=== PATIENT | female | born 1960 | race Caucasian/White ===

== ENCOUNTER 2016-06-11 03:42 | Emergency (ER) | payer OTHER ==
--- NOTE | 2016-06-11 07:42 | ER Document Report ---
ED General - General Chief Complaint: Palpitations Stated Complaint: ANXIETY TRAVEL OUTSIDE OF THE [place] IN LAST 30 DAYS: No - HPI Patient complains to provider of: anxiety palpitations Notes: Age coming in for evaluation of anxiety palpitations. Patient recently had a capsule placed in by local GI specialist after this procedure patient states that she started having weird feelings in her stomach burning sensation in her chest numbness and tingling in her hands and possible anxiety attacks. Patient was seen by PCP and prescribed Xanax. Patient states her symptoms improved taking Xanax however still have another episode night prior to arrival and came to ER for further evaluation denies fevers chills nausea vomiting diarrhea. Patient denies any palpitations numbness or tingling at this time. - Related Data Allergies/Adverse Reactions: No Known Allergies Allergy (Unverified 06/11/16 04:07) Past Medical History - Social History Smoking Status: Current Every Day Smoker Frequency of alcohol use: None Drug Abuse: None Family History: Reviewed & Not Pertinent Patient has suicidal ideation: No Patient has homicidal ideation: No Renal/ Medical History: Denies: Hx Peritoneal Dialysis - Immunizations Hx Diphtheria, Pertussis, Tetanus Vaccination: Yes Review of Systems - Review of Systems Constitutional: No symptoms reported EENT: No symptoms reported Cardiovascular: Palpitations Respiratory: No symptoms reported Gastrointestinal: No symptoms reported Genitourinary: No symptoms reported Female Genitourinary: No symptoms reported Musculoskeletal: No symptoms reported Skin: No symptoms reported Hematologic/Lymphatic: No symptoms reported Neurological/Psychological: Anxiety -: Yes All other systems reviewed and negative Physical Exam - Vital signs Vitals: Temp Pulse Resp BP Pulse Ox 97.7 F 95 18 130/77 H 95 06/11/16 03:48 06/11/16 03:48 06/11/16 03:48 06/11/16 03:48 06/11/16 03:48 Interpretation: Normal - General General appearance: Appears well, Alert - HEENT Head: Normocephalic, Atraumatic Eyes: Normal Pupils: PERRL - Respiratory Respiratory status: No respiratory distress Chest status: Nontender Breath sounds: Normal Chest palpation: Normal - Cardiovascular Rhythm: Regular Heart sounds: Normal auscultation Murmur: No - Abdominal Inspection: Normal Distension: No distension Bowel sounds: Normal Tenderness: Nontender Organomegaly: No organomegaly - Back Back: Normal, Nontender - Extremities General upper extremity: Normal inspection, Nontender, Normal color, Normal ROM , Normal temperature General lower extremity: Normal inspection, Nontender, Normal color, Normal ROM , Normal temperature, Normal weight bearing. No: Lou's sign - Neurological Neuro grossly intact: Yes Cognition: Normal Orientation: AAOx4 Hendrix Coma Scale Eye Opening: Spontaneous Rosmery Coma Scale Verbal: Oriented Rosmery Coma Scale Motor: Obeys Commands Rosmery Coma Scale Total: 15 Speech: Normal Motor strength normal: LUE, RUE, LLE, RLE Sensory: Normal - Psychological Associated symptoms: Normal affect, Normal mood - Skin Skin Temperature: Warm Skin Moisture: Dry Skin Color: Normal Course - Re-evaluation Re-evalutation: 06/11/16 14:07 EKG and evaluation revealed no critical etiology. Recommend patient follow-up with her GI specialist and PCP. Continue medications as prescribed. - Vital Signs Vital signs: Temp Pulse Resp BP Pulse Ox 97.7 F 75 16 123/89 H 98 06/11/16 03:48 06/11/16 07:50 06/11/16 07:50 06/11/16 07:50 06/11/16 07:50 Discharge - Discharge Clinical Impression: Anxiety, Palpitations Condition: Good Disposition: HOME, SELF-CARE Instructions: Palpitations (Irregular or Rapid Heartrate) ([facility]), Anxiety ([facility]) , Reflux Disease (GERD) ([facility]) Additional Instructions: Please follow-up with your primary care physician. Please continue your medications as prescribed. I believe her symptoms are due to uterine acid reflux or GERD causing irritation of the diaphragm. We will add Reglan to aid in your symptoms. Prescriptions: Metoclopramide HCl [Reglan] 5 mg PO Q6 #14 tablet Referrals: JACKELYN LOW MD [Primary Care Provider] - Follow up in 3-5 days
[2016-06-11 08:10] VITALS: BP 123/89
--- NOTE | 2016-06-11 08:16 | EKG REPORT ---
SEVERITY:- NORMAL ECG - SINUS RHYTHM : Confirmed by: Arlin Carson MD 11-Jun-2016 08:16:01
== END 2016-06-11 07:50 | disposition home or self-care (01) ==
LOC: ER 03:42
DX: F41.9 Anxiety disorder, unspecified (principal); R00.2 Palpitations; R09.89 Other specified symptoms and signs involving the circulatory and respiratory systems; R20.0 Anesthesia of skin; R20.2 Paresthesia of skin; R19.8 Other specified symptoms and signs involving the digestive system and abdomen; F17.200 Nicotine dependence, unspecified, uncomplicated; Z98.890 Other specified postprocedural states
CPT/HCPCS: 93005; 93010; 99285

== ENCOUNTER 2016-07-01 11:40 | Observation (INO) | payer OTHER ==
--- NOTE | 2016-07-01 12:11 | ER Document Report ---
ED Medical Screen (RME) - General TRAVEL OUTSIDE OF THE [place] IN LAST 30 DAYS: No <JUANIS HODGSON - Last Filed: 07/01/16 12:12> <BRYAN LUNA - Last Filed: 07/08/16 10:53> - General Stated Complaint: HEART PALPITATIONS, NAUSEA Notes: 56 yo female c/o hearl pounding, chest tightness, anxiety, nausea, pounding in ears since this morning. Seen yesterday in ED for LUQ pain, DX with pancreatitis. pt does have hx/o anxiety. Took .25 xanax around 1000 today. minimal relief. denies abdominal pain today (JUANIS HODGSON) - Related Data Allergies/Adverse Reactions: No Known Allergies Allergy (Verified 07/01/16 12:08) Past Medical History Renal/ Medical History: Denies: Hx Peritoneal Dialysis - Immunizations Hx Diphtheria, Pertussis, Tetanus Vaccination: Yes <JUANIS HODGSON - Last Filed: 07/01/16 12:12> Course - Laboratory Result Diagrams: 07/02/16 03:31 07/02/16 03:31 <BRYAN LUNA - Last Filed: 07/08/16 10:53> - Vital Signs Vital signs: Temp Pulse Resp BP Pulse Ox 98.6 F 57 L 18 129/74 H 98 07/02/16 14:34 07/02/16 14:34 07/02/16 14:34 07/02/16 14:34 07/02/16 14:34 - Laboratory Laboratory results interpreted by me: 07/01/16 07/01/16 15:17 15:17 RDW 14.2 H BUN 6 L AST 12 L Doctor's Discharge <JUANIS HODGSON - Last Filed: 07/01/16 12:12> <BRYAN LUNA - Last Filed: 07/08/16 10:53> - Discharge Clinical Impression: Chest pain, Palpitations Condition: Fair Disposition: ADMITTED OBSERVATION
[2016-07-01] MEDS ORDERED: ASPIRIN 325 MG TABLET PO ONE (14:06)
[2016-07-01] MEDS ORDERED: NORMAL SALINE 1000 ML 1,000 ML IV ONE (14:06)
--- NOTE | 2016-07-01 14:12 | ER Document Report ---
ED General - General Chief Complaint: Palpitations Stated Complaint: HEART PALPITATIONS, NAUSEA Time seen by provider: 14:07 Mode of Arrival: Ambulatory Information source: Patient Notes: 56-year-old female who reports 2 month history of multiple episodes of midsternal chest tightness and rapid pounding heartbeat. Patient seen here yesterday for similar symptoms and was found to have cholelithiasis and a lipase of 455. 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 Jean Baptiste of gastroenterology in [place] by capsule endoscopy. She says her current symptoms are different that her esophagitis symptoms. She reports that she has been taking Xanax prescribed by her primary care physician [facility] for the symptoms since early May and reports that they usually will go away after about half an hour after she takes that at this morning she was woken up at 5 AM with the symptoms which are now associated with shortness of breath diaphoresis and nausea which are new for her he reports symptoms went away after about an hour with a Xanax this morning and then returned about 10 AM. She has not noted any association of the symptoms with eating or exertion. He reports approximately 15 pound weight loss over the past 2 months. She denies hematemesis, medication melena. She denies any history of travel or immobilization. She reports the chest discomfort she feels is nonradiating. She reports no pain numbness or weakness to extremities. She reports no prior stress testing or other cardiac workup. Physical Exam: General: Alert, appears well. HEENT: Normocephalic. Atraumatic. PERRLA. Extraocular movements intact. Oropharynx clear. Neck: Supple. Non-tender. Respiratory: No respiratory distress. Clear and equal breath sounds bilaterally. Not tender to palpation Cardiovascular: Regular rate and rhythm. Abdominal: Normal Inspection. Soft, non-tender. No distension. Normal Bowel Sounds. No guarding rebound rigidity Back: Non-tender. No deformity or step off. Extremities: Moves all four extremities. Upper extremities: Normal inspection. Non-tender. Normal color. Normal ROM. Normal temperature. Lower extremities: Normal inspection. Non-tender. No edema. Normal color. Normal ROM. Normal temperature. No edema no Homans sign bilaterally Neurological: Speech clear mentation normal can technician strength 5 out of 5 equal both upper extremities motor function 5 out of 5 equal both lower extremities Psychological: Normal affect. Normal Mood. Skin: Warm. Dry. Normal color. TRAVEL OUTSIDE OF THE [place] IN LAST 30 DAYS: No - Related Data Allergies/Adverse Reactions: No Known Allergies Allergy (Verified 07/01/16 12:08) Past Medical History - Social History Smoking Status: Current Every Day Smoker Chew tobacco use (# tins/day): Yes Frequency of alcohol use: None Drug Abuse: None Family History: CAD - Reports brother needs cardiac stent, Other - She reports no family history of blood clots Patient has suicidal ideation: No Patient has homicidal ideation: No - Past Medical History Cardiac Medical History: Reports: None Renal/ Medical History: Denies: Hx Peritoneal Dialysis - Immunizations Hx Diphtheria, Pertussis, Tetanus Vaccination: Yes Review of Systems - Review of Systems Constitutional: denies: Chills, Fever EENT: denies: Ear pain, Throat pain Cardiovascular: See HPI Respiratory: See HPI. denies: Cough Gastrointestinal: See HPI. denies: Diarrhea Genitourinary: denies: Burning, Dysuria Female Genitourinary: denies: Musculoskeletal: denies: Back pain, Leg swelling Skin: denies: Rash Hematologic/Lymphatic: denies: Swollen glands Neurological/Psychological: denies: Weakness, Numbness Physical Exam - Vital signs Vitals: Temp Pulse Resp BP Pulse Ox 98.3 F 89 19 137/72 H 98 07/01/16 12:04 07/01/16 12:04 07/01/16 12:04 07/01/16 12:04 07/01/16 12:04 Course - Re-evaluation Re-evalutation: 07/01/16 16:28 Patient's symptoms are suggestive of angina possibly related to a tachyarrhythmia. She reports no prior cardiac workup and this is her second visit in 24 hours for this complaint. I think it would be prudent to have her in observation with plans for repeat cardiac enzymes possible stress testing tomorrow. She may also develop further episodes of her reported tachycardia on the monitor and that may also give us a diagnosis. Lipase is mildly elevated yesterday but is normal [place]aston an oblique pancreatitis as causes for symptoms. She is noted yesterday to have gallstones on ultrasound but she has no right upper quadrant tenderness and labs are normal and I do not believe we should attribute her symptoms to cholelithiasis without cardiac etiologies being further investigated patient is agreeable have consult to Dr. obrien of the hospitalist service for admission - Vital Signs Vital signs: Temp Pulse Resp BP Pulse Ox 98.3 F 89 19 137/72 H 98 07/01/16 12:04 07/01/16 12:04 07/01/16 12:04 07/01/16 12:04 07/01/16 12:04 - Laboratory Result Diagrams: 07/01/16 15:17 07/01/16 15:17 Laboratory results interpreted by me: 07/01/16 07/01/16 15:17 15:17 RDW 14.2 H BUN 6 L AST 12 L - Diagnostic Test Radiology reviewed: Image reviewed, Reports reviewed - EKG Interpretation by Me Additional EKG results interpreted by me: 07/01/16 16:27 EKG reviewed by myself sinus bradycardia at 53 no acute changes no significant change compared to yesterday Discharge - Discharge Clinical Impression: Palpitations Chest pain Qualifiers: Chest pain type: unspecified Qualified Code(s): R07.9 - Chest pain, unspecified Condition: Fair Disposition: ADMITTED OBSERVATION Admitting Provider: Hospitalist Unit Admitted: Telemetry
[2016-07-01 15:41] LABS: ABSOLUTE BASOPHILS # (AUTO) 0.1 10^3/uL (0.0-0.2); ABSOLUTE LYMPHOCYTES (AUTO) 1.8 10^3/uL (0.5-4.7); ABSOLUTE MONOCYTES (AUTO) 0.5 10^3/uL (0.1-1.4); ABSOLUTE NEUT (AUTO) 6.1 10^3/uL (1.7-8.2); BASOPHILS % (AUTO) 0.8 % (0-2); EOSINOPHILS % (AUTO) 0.4 % (0-6); HEMATOCRIT 39.8 % (36.0-47.0); HGB HCT DIFFERENCE 1.3; LYMPHOCYTES % (AUTO) 20.9 % (13-45); MEAN CORPUSCULAR HEMOGLOBIN 30.6 pg (27.0-33.4); MEAN CORPUSCULAR HGB CONC 34.4 g/dL (32.0-36.0); MEAN CORPUSCULAR VOLUME 89 fl (80-97); MONOCYTES % (AUTO) 6.3 % (3-13); RED BLOOD COUNT 4.47 10^6/uL (3.72-5.28); RED CELL DISTRIBUTION WIDTH 14.2 % (11.5-14.0); SEGMENTED NEUTROPHILS % (AUTO) 71.6 % (42-78); WHITE BLOOD COUNT 8.6 10^3/uL (4.0-10.5)
[2016-07-01 16:01] LABS: ALANINE AMINOTRANSFERASE 28 U/L (9-52); ALBUMIN 4.2 g/dL (3.5-5.0); ALKALINE PHOSPHATASE 71 U/L (38-126); ANION GAP 9 (5-19); ASPARTATE AMINO TRANSFERASE 12 U/L (14-36); BILIRUBIN,TOTAL 0.6 mg/dL (0.2-1.3); BLOOD UREA NITROGEN 6 mg/dL (7-20); CALCIUM 9.7 mg/dL (8.4-10.2); CARBON DIOXIDE 26 mmol/L (22-30); CHLORIDE 107 mmol/L (98-107); CREATINE KINASE 50 U/L (30-135); CREATININE RESULT 0.59 mg/dL (0.52-1.25); GLUCOSE 84 mg/dL (75-110); LIPASE 62.4 U/L (23-300); MAGNESIUM 2.1 mg/dL (1.6-2.3); SODIUM 141.7 mmol/L (137-145); TOTAL PROTEIN 6.5 g/dL (6.3-8.2)
[2016-07-01 16:04] LABS: HEMOGLOBIN 13.7 g/dL (12.0-15.5)
[2016-07-01 16:12] LABS: CREATINE KINASE MB < 0.22 ng/mL (<4.55); TROPONIN I < 0.012 ng/mL
--- NOTE | 2016-07-01 17:28 | PDOC H&P ---
History of Present Illness Admission Date/PCP: JACKELYN LOW MD 07/01/2016 Patient complains of: Chest pain and abdominal pain History of Present Illness: MIGUE AGUILAR is a 56 year old female With a known history of reflux esophagitis and Gamble's esophagus presents to the ED second time with chief complaint of epigastric pain And chest pressure patient states the chest pressure started tonight was precordial does not radiate She still is experiencing palpitations at the same time She did not have any dizziness lightheadedness shortness of breath associated with it Patient was seen yesterday with similar complaints Ultrasound of the abdomen performed yesterday showed gallstones Lipase was mildly elevated Patient states that she had about 15 pounds weight loss in a month she has anorexia and vague epigastric discomfort Upon evaluation in the ED EKG was normal, cardiac enzymes normal She was subsequently admitted to telemetry unit for monitoring and observation CT abdomen and pelvis will be performed tonight Past Medical History Cardiac Medical History: Reports: None GI Medical History: Reports: Other - Reflux esophagitis Gamble's esophagus Endoscopy performed by Dr. Cope April 2016 Social History Information Source: Patient Lives with: Family Smoking Status: Current Every Day Smoker Frequency of Alcohol Use: None Drugs: None - Advance Directive Resuscitation Status: Full Code Surrogate healthcare decision maker:: [place] Family History Family History: CAD - Reports brother needs cardiac stent, Other - She reports no family history of blood clots Parental Family History Reviewed: Yes - Brother and father had coronary artery disease Children Family History Reviewed: Yes Sibling(s) Family History Reviewed.: Yes Medication/Allergy Home Medications: Metoclopramide HCl [Reglan] 5 mg PO Q6 #14 tablet 06/11/16 Ondansetron [Zofran Odt 4 mg Tablet] 1 - 2 tab PO Q4H PRN #15 tab.rapdis Allergies/Adverse Reactions: No Known Allergies Allergy (Verified 07/01/16 12:08) Review of Systems Constitutional: PRESENT: as per HPI, anorexia, weight loss Eyes: ABSENT: visual disturbances Ears: ABSENT: hearing changes Cardiovascular: PRESENT: as per HPI, chest pain, palpitations. ABSENT: dyspnea on exertion, edema, orthropnea Respiratory: ABSENT: cough, hemoptysis Gastrointestinal: PRESENT: abdominal pain, nausea. ABSENT: constipation, diarrhea, hematemesis, hematochezia, vomiting Genitourinary: ABSENT: dysuria, hematuria Musculoskeletal: ABSENT: joint swelling Integumentary: ABSENT: rash, wounds Neurological: ABSENT: abnormal gait, abnormal speech, confusion, dizziness, focal weakness, syncope Psychiatric: ABSENT: anxiety, depression, homidical ideation, suicidal ideation Endocrine: ABSENT: cold intolerance, heat intolerance, polydipsia, polyuria Hematologic/Lymphatic: ABSENT: easy bleeding, easy bruising Physical Exam Vital Signs: Temp Pulse Resp BP Pulse Ox 98.3 F 89 25 H 132/83 H 98 07/01/16 12:04 07/01/16 12:04 07/01/16 16:56 07/01/16 16:56 07/01/16 16:56 Intake & Output 06/30/16 07/01/16 07/02/16 00:59 00:59 00:59 Weight 65.1 kg General appearance: PRESENT: no acute distress, well-developed, well-nourished Head exam: PRESENT: atraumatic, normocephalic Eye exam: PRESENT: conjunctiva pink, EOMI, PERRLA. ABSENT: scleral icterus Ear exam: PRESENT: normal external ear exam Mouth exam: PRESENT: moist, tongue midline Neck exam: ABSENT: carotid bruit, JVD, lymphadenopathy, thyromegaly Respiratory exam: PRESENT: clear to auscultation ad. ABSENT: rales, rhonchi, wheezes Cardiovascular exam: PRESENT: RRR. ABSENT: diastolic murmur, rubs, systolic murmur Pulses: PRESENT: normal dorsalis pedis pul Vascular exam: PRESENT: normal capillary refill GI/Abdominal exam: PRESENT: normal bowel sounds, soft, tenderness - Epigastric area with mild guarding. ABSENT: distended, guarding, mass, organolmegaly, rebound Rectal exam: PRESENT: deferred Extremities exam: PRESENT: full ROM. ABSENT: calf tenderness, clubbing, pedal edema Neurological exam: PRESENT: alert, awake, oriented to person, oriented to place , oriented to time, oriented to situation, CN II-XII grossly intact. ABSENT: motor sensory deficit Psychiatric exam: PRESENT: appropriate affect, normal mood. ABSENT: homicidal ideation, suicidal ideation Skin exam: PRESENT: dry, intact, warm. ABSENT: cyanosis, rash Results Laboratory Results: 07/01/16 15:17 07/01/16 15:17 07/01/16 07/01/16 15:17 15:17 WBC 8.6 RBC 4.47 Hgb 13.7 D Hct 39.8 MCV 89 MCH 30.6 MCHC 34.4 RDW 14.2 H Plt Count 220 Seg Neutrophils % 71.6 Lymphocytes % 20.9 Monocytes % 6.3 Eosinophils % 0.4 Basophils % 0.8 Absolute Neutrophils 6.1 Absolute Lymphocytes 1.8 Absolute Monocytes 0.5 Absolute Eosinophils 0.0 Absolute Basophils 0.1 Sodium 141.7 Potassium 4.0 Chloride 107 Carbon Dioxide 26 Anion Gap 9 BUN 6 L Creatinine 0.59 Est GFR ( Amer) > 60 Est GFR (Non-Af Amer) > 60 Glucose 84 Calcium 9.7 Magnesium 2.1 Total Bilirubin 0.6 AST 12 L ALT 28 Alkaline Phosphatase 71 Total Protein 6.5 Albumin 4.2 Lipase 62.4 07/01/16 07/01/16 15:17 15:17 Creatine Kinase 50 CK-MB (CK-2) < 0.22 Troponin I < 0.012 EKG Comments: SINUS RHYTHM [id number] MIGUE AGUILAR 01-Jul-2016 14:17:04 : 1960 56 Years Female Impressions: Chest X-Ray 07/01/16 14:06 IMPRESSION: Lungs hyperlucent from obstructive disease. No focal infiltrates. Assessment & Plan - Diagnosis (1) Abdominal pain Qualifiers: Abdominal location: upper abdomen, unspecified Qualified Code(s): R10.10 - Upper abdominal pain, unspecified Is this a current diagnosis for this admission?: YesPlan: Patient has a slightly elevated lipase yesterday An ultrasound of the right upper quadrant showed gallstones no signs of cholecystitis We will obtained a CAT scan abdomen and pelvis Further tests may be done in a.m. to evaluate patient-MRCP and or hydascan (2) Weight loss Is this a current diagnosis for this admission?: YesPlan: Etiology is unclear likely related to the epigastric discomfort (3) Chest pain Qualifiers: Chest pain type: unspecified Qualified Code(s): R07.9 - Chest pain, unspecified Is this a current diagnosis for this admission?: YesPlan: Not likely to be coronary ischemia We will monitor the patient and obtain serial enzymes Patient is a smoker, and she has a positive family history (4) Palpitations Is this a current diagnosis for this admission?: Yes - Time Time Spent with patient: Admit to telemetry Time Spent: 50 to 70 Minutes - Inpatient Certification Based on my medical assessment, after consideration of the patient's comorbidities, presenting symptoms, or acuity I expect that the services needed warrant INPATIENT care.: No I certify that my determination is in accordance with my understanding of Medicare's requirements for reasonable and necessary INPATIENT services [42 CFR 412.3e].: No
[2016-07-01] MEDS ORDERED: ENOXAPARIN SODIUM INJ 40 MG/0.4 ML DISP.SYRIN SUBCUT ONE (18:30)
[2016-07-01] MEDS: PANTOPRAZOLE SODIUM 40 MG VIAL IV SCH (23:21)
[2016-07-01] MEDS: NORMAL SALINE 1000 ML 1,000 ML IV PRN (23:21)
[2016-07-02 03:54] LABS: HEMATOCRIT 38.4 % (36.0-47.0); HEMOGLOBIN 13.2 g/dL (12.0-15.5); HGB HCT DIFFERENCE 1.2; MEAN CORPUSCULAR HEMOGLOBIN 30.8 pg (27.0-33.4); MEAN CORPUSCULAR HGB CONC 34.4 g/dL (32.0-36.0); MEAN CORPUSCULAR VOLUME 89 fl (80-97); RED CELL DISTRIBUTION WIDTH 14.4 % (11.5-14.0); WHITE BLOOD COUNT 7.3 10^3/uL (4.0-10.5)
[2016-07-02 04:04] LABS: ALANINE AMINOTRANSFERASE 25 U/L (9-52); ALBUMIN 3.8 g/dL (3.5-5.0); ALKALINE PHOSPHATASE 64 U/L (38-126); ANION GAP 9 (5-19); ASPARTATE AMINO TRANSFERASE 13 U/L (14-36); BILIRUBIN,TOTAL 0.5 mg/dL (0.2-1.3); BLOOD UREA NITROGEN 4 mg/dL (7-20); CALCIUM 9.2 mg/dL (8.4-10.2); CARBON DIOXIDE 25 mmol/L (22-30); CHLORIDE 109 mmol/L (98-107); CHOLESTEROL 154.17 mg/dL (0-200); CREATININE RESULT 0.56 mg/dL (0.52-1.25); Direct HDL 33 mg/dL (>40); GLUCOSE 93 mg/dL (75-110); POTASSIUM 3.8 mmol/L (3.6-5.0); SODIUM 143.3 mmol/L (137-145); TRIGLYCERIDES 114 mg/dL (<150)
[2016-07-02 04:14] LABS: DIRECT LDL 88 mg/dL (<100)
[2016-07-02] MEDS ORDERED: ENOXAPARIN SODIUM INJ 40 MG/0.4 ML DISP.SYRIN SUBCUT SCH (08:00)
[2016-07-02] MEDS: NORMAL SALINE 1000 ML 1,000 ML IV PRN (09:23)
[2016-07-02] MEDS: PANTOPRAZOLE SODIUM 40 MG VIAL IV SCH (09:37)
--- NOTE | 2016-07-02 11:18 | EKG REPORT ---
SEVERITY:- NORMAL ECG - SINUS RHYTHM : Confirmed by: Maren Avelar 02-Jul-2016 11:17:20
--- NOTE | 2016-07-02 11:18 | EKG REPORT ---
SEVERITY:- BORDERLINE ECG - SINUS RHYTHM LOW VOLTAGE THROUGHOUT : Confirmed by: Maren Avelar 02-Jul-2016 11:17:15
[2016-07-02 14:36] VITALS: BP 129/74
--- NOTE | 2016-07-02 15:17 | PDOC DISCHARGE SUMMARY ---
General - Admit/Disc Date/PCP Admission Date/Primary Care Provider: 07/01/16 17:12 JACKELYN LOW MD Discharge Date: 07/02/16 - Discharge Diagnosis (1) Abdominal pain Is this a current diagnosis for this admission?: Yes (2) Weight loss Is this a current diagnosis for this admission?: Yes (3) Chest pain Is this a current diagnosis for this admission?: Yes (4) Palpitations Is this a current diagnosis for this admission?: Yes - Additional Information Resuscitation Status: Full Code Discharge Activity: Activity As Tolerated, Balance Activity w/Rest Home Medications: Alprazolam [Xanax 0.25 mg Tablet] 0.25 mg PO TIDP PRN 07/02/16 Cetirizine HCl [Zyrtec 10 mg Tablet] 10 mg PO DAILY PRN 07/02/16 Escitalopram Oxalate [Lexapro 10 mg Tablet] 10 mg PO DAILY 07/02/16 Escitalopram Oxalate [Lexapro 10 mg Tablet] 20 mg PO DAILY 07/02/16 Esomeprazole Mag Trihydrate [Nexium] 40 mg PO DAILY 07/02/16 Ranitidine HCl [Zantac 150 mg Tablet] 150 mg PO BID 07/02/16 Sucralfate [Carafate Susp 1 Gm/10 Ml Udcup] 1 gm PO ACHS #400 ml 07/02/16 History of Present Illness Patient complains of: Chest pain epigastric pain History of Present Illness: MIGUE AGUILAR is a 56 year old female With a known history of reflux esophagitis and Gamble's esophagus presents to the ED second time with chief complaint of epigastric pain And chest pressure patient states the chest pressure started tonight was precordial does not radiate She still is experiencing palpitations at the same time She did not have any dizziness lightheadedness shortness of breath associated with it Patient was seen yesterday with similar complaints Ultrasound of the abdomen performed yesterday showed gallstones Lipase was mildly elevated Patient states that she had about 15 pounds weight loss in a month she has anorexia and vague epigastric discomfort Upon evaluation in the ED EKG was normal, cardiac enzymes normal She was subsequently admitted to telemetry unit for monitoring and observation CT abdomen and pelvis will be performed tonight Hospital Course Hospital Course: Patient was admitted with chest epigastric discomfort and significant weight loss She was monitored overnight did not have any arrhythmia Cardiac enzymes were negative She had a normal lipid profile Ultrasound of the abdomen showed gallstones Hyda scan was negative CT abdomen and pelvis was unremarkable patient's epigastric discomfort is likely secondary to gastritis and/or peptic ulcer disease We prescribed Carafate to be added to Nexium Patient will follow up with her primary care physician and her compensation director If discomfort persists endoscopy may be indicated Physical Exam Vital Signs: Temp Pulse Resp BP Pulse Ox 98.6 F 57 L 18 129/74 H 98 07/02/16 14:34 07/02/16 14:34 07/02/16 14:34 07/02/16 14:34 07/02/16 14:34 Intake & Output 07/01/16 07/02/16 07/03/16 00:59 00:59 00:59 Intake Total 964 Output Total 800 Balance -800 964 Weight 65.5 kg 65.5 kg General appearance: PRESENT: no acute distress, well-developed, well-nourished Head exam: PRESENT: atraumatic, normocephalic Eye exam: PRESENT: conjunctiva pink, EOMI, PERRLA. ABSENT: scleral icterus Ear exam: PRESENT: normal external ear exam Mouth exam: PRESENT: moist, tongue midline Neck exam: ABSENT: carotid bruit, JVD, lymphadenopathy, thyromegaly Respiratory exam: PRESENT: clear to auscultation ad. ABSENT: rales, rhonchi, wheezes Cardiovascular exam: PRESENT: RRR. ABSENT: diastolic murmur, rubs, systolic murmur Pulses: PRESENT: normal dorsalis pedis pul Vascular exam: PRESENT: normal capillary refill GI/Abdominal exam: PRESENT: normal bowel sounds, soft. ABSENT: distended, guarding, mass, organolmegaly, rebound, tenderness Rectal exam: PRESENT: deferred Extremities exam: PRESENT: full ROM. ABSENT: calf tenderness, clubbing, pedal edema Neurological exam: PRESENT: alert, awake, oriented to person, oriented to place , oriented to time, oriented to situation, CN II-XII grossly intact. ABSENT: motor sensory deficit Psychiatric exam: PRESENT: appropriate affect, normal mood. ABSENT: homicidal ideation, suicidal ideation Skin exam: PRESENT: dry, intact, warm. ABSENT: cyanosis, rash Results Laboratory Results: 07/02/16 03:31 07/02/16 03:31 07/02/16 07/02/16 07/02/16 03:31 03:31 03:31 WBC 7.3 RBC 4.30 Hgb 13.2 Hct 38.4 MCV 89 MCH 30.8 MCHC 34.4 RDW 14.4 H Plt Count 184 Sodium 143.3 Potassium 3.8 Chloride 109 H Carbon Dioxide 25 Anion Gap 9 BUN 4 L Creatinine 0.56 Est GFR ( Amer) > 60 Est GFR (Non-Af Amer) > 60 Glucose 93 Calcium 9.2 Total Bilirubin 0.5 AST 13 L ALT 25 Alkaline Phosphatase 64 Total Protein 6.0 L Albumin 3.8 Triglycerides 114 Cholesterol 154.17 LDL Cholesterol Direct 88 VLDL Cholesterol 23.0 HDL Cholesterol 33 L TSH 1.11 07/01/16 07/02/16 21:09 03:31 Troponin I < 0.012 < 0.012 Impressions: Chest X-Ray 07/01/16 14:06 IMPRESSION: Lungs hyperlucent from obstructive disease. No focal infiltrates. Abdomen/Pelvis CT 07/01/16 17:16 IMPRESSION: NO SIGNIFICANT OR ACUTE FINDINGS IN THE ABDOMEN OR PELVIS. Hepatobiliary Scan Nuclear Medicine 07/02/16 08:47 IMPRESSION: NORMAL STUDY WITHOUT CYSTIC OR COMMON DUCT OBSTRUCTION. Plan Discharge Plan: Discharge home follow-up with PMD Time Spent: Less than 30 Minutes
== END 2016-07-02 16:25 | disposition home or self-care (01) ==
LOC: ER 11:40 → EH 17:12 → UNDOADMOB 17:33 → 3W 07-02 00:47
PROVIDERS: ADMIT Emergency Medicine; ATTEND Emergency Medicine
PROC: 3E0337Z Introduction of Electrolytic and Water Balance Substance into Peripheral Vein, Percutaneous Approach (ICD-10-PCS; principal; 2016-07-01)
PROC: 3E033GC Introduction of Other Therapeutic Substance into Peripheral Vein, Percutaneous Approach (ICD-10-PCS; 2016-07-01)
DX: R07.9 Chest pain, unspecified (principal); R10.10 Upper abdominal pain, unspecified; R63.4 Abnormal weight loss; R00.2 Palpitations; F17.200 Nicotine dependence, unspecified, uncomplicated
CPT/HCPCS: 93005 ×2; 99285; 96361; 96374; 36415 ×2; 82553; 82550; 83690; 83735; 84443; 85025; 85027; 80053 ×2; 84484 ×2; 83036; 85379; 80061; 71010; 78226; 74177; 93010 ×2; G0378 ×3; A9537; J1650; S0164 ×2; J7030 ×2; Q9969

== ENCOUNTER 2016-07-12 08:56 | Emergency (ER) | payer OTHER ==
[2016-07-12] MEDS ORDERED: ASPIRIN 81 MG TABLET, CHEWABLE PO ONE (09:48)
[2016-07-12 11:08] LABS: ABSOLUTE BASOPHILS # (AUTO) 0.1 10^3/uL (0.0-0.2); ABSOLUTE LYMPHOCYTES (AUTO) 1.2 10^3/uL (0.5-4.7); ABSOLUTE MONOCYTES (AUTO) 0.7 10^3/uL (0.1-1.4); ABSOLUTE NEUT (AUTO) 6.5 10^3/uL (1.7-8.2); BASOPHILS % (AUTO) 0.9 % (0-2); EOSINOPHILS % (AUTO) 0.6 % (0-6); HEMATOCRIT 44.8 % (36.0-47.0); HEMOGLOBIN 15.6 g/dL (12.0-15.5); LYMPHOCYTES % (AUTO) 14.5 % (13-45); MEAN CORPUSCULAR HGB CONC 34.9 g/dL (32.0-36.0); MEAN CORPUSCULAR VOLUME 89 fl (80-97); MONOCYTES % (AUTO) 8.3 % (3-13); RED BLOOD COUNT 5.05 10^6/uL (3.72-5.28); RED CELL DISTRIBUTION WIDTH 14.4 % (11.5-14.0); SEGMENTED NEUTROPHILS % (AUTO) 75.7 % (42-78); WHITE BLOOD COUNT 8.6 10^3/uL (4.0-10.5)
[2016-07-12] MEDS ORDERED: BENZTROPINE MESYLATE 1 MG TABLET PO ONE (11:16)
[2016-07-12 11:22] LABS: PROTHROMBIN TIME 12.5 SEC (11.4-15.4)
[2016-07-12 11:25] LABS: D-DIMER 0.29 ug/mL (0.00-0.50)
[2016-07-12 11:30] LABS: ALANINE AMINOTRANSFERASE 28 U/L (9-52); ALBUMIN 4.6 g/dL (3.5-5.0); ALKALINE PHOSPHATASE 79 U/L (38-126); ANION GAP 14 (5-19); ASPARTATE AMINO TRANSFERASE 16 U/L (14-36); BILIRUBIN,DIRECT 0.3 mg/dL (0.0-0.4); BILIRUBIN,TOTAL 0.6 mg/dL (0.2-1.3); BLOOD UREA NITROGEN 6 mg/dL (7-20); CARBON DIOXIDE 25 mmol/L (22-30); CHLORIDE 100 mmol/L (98-107); CREATINE KINASE 36 U/L (30-135); CREATININE RESULT 0.61 mg/dL (0.52-1.25); GLUCOSE 85 mg/dL (75-110); LIPASE 107.2 U/L (23-300); MAGNESIUM 2.2 mg/dL (1.6-2.3); POTASSIUM 3.8 mmol/L (3.6-5.0); SODIUM 139.4 mmol/L (137-145); TOTAL PROTEIN 7.3 g/dL (6.3-8.2)
[2016-07-12 11:43] LABS: CREATINE KINASE MB < 0.22 ng/mL (<4.55); TROPONIN I < 0.012 ng/mL
--- NOTE | 2016-07-12 12:44 | ER Document Report ---
ED General - General Chief Complaint: Palpitations Stated Complaint: POSSIBLE MEDICATION REACTION TRAVEL OUTSIDE OF THE [place] IN LAST 30 DAYS: No - HPI Patient complains to provider of: palpitations Notes: Patient states that she was currently prescribed Lexapro for her anxiety and think she is having side effects from medication blurry vision palpitations feeling uneasy. Patient states that she called her PCP recommended she come to the ER for further evaluation. Denies any fevers chills nausea vomiting denies actual chest pain. Patient is resting comfortably upon my evaluation - Related Data Allergies/Adverse Reactions: escitalopram Allergy (Verified 07/13/16 04:15) Past Medical History - Social History Smoking Status: Current Every Day Smoker Chew tobacco use (# tins/day): No Frequency of alcohol use: None Drug Abuse: None Family History: CAD - Reports brother needs cardiac stent, Other - She reports no family history of blood clots Patient has suicidal ideation: No Patient has homicidal ideation: No Renal/ Medical History: Denies: Hx Peritoneal Dialysis - Immunizations Hx Diphtheria, Pertussis, Tetanus Vaccination: Yes Review of Systems - Review of Systems Constitutional: No symptoms reported EENT: No symptoms reported Cardiovascular: Palpitations Respiratory: No symptoms reported Gastrointestinal: No symptoms reported Genitourinary: No symptoms reported Female Genitourinary: No symptoms reported Musculoskeletal: No symptoms reported Skin: No symptoms reported Hematologic/Lymphatic: No symptoms reported Neurological/Psychological: No symptoms reported -: Yes All other systems reviewed and negative Physical Exam - Vital signs Vitals: Temp Pulse Resp BP Pulse Ox 98.3 F 98 20 127/85 H 95 07/12/16 09:03 07/12/16 09:03 07/12/16 09:03 07/12/16 09:03 07/12/16 09:03 Interpretation: Normal - General General appearance: Appears well, Alert - HEENT Head: Normocephalic, Atraumatic Eyes: Normal Pupils: PERRL - Respiratory Respiratory status: No respiratory distress Chest status: Nontender Breath sounds: Normal Chest palpation: Normal - Cardiovascular Rhythm: Regular Heart sounds: Normal auscultation Murmur: No - Abdominal Inspection: Normal Distension: No distension Bowel sounds: Normal Tenderness: Nontender Organomegaly: No organomegaly - Back Back: Normal, Nontender - Extremities General upper extremity: Normal inspection, Nontender, Normal color, Normal ROM , Normal temperature General lower extremity: Normal inspection, Nontender, Normal color, Normal ROM , Normal temperature, Normal weight bearing. No: Lou's sign - Neurological Neuro grossly intact: Yes Cognition: Normal Orientation: AAOx4 Rosmery Coma Scale Eye Opening: Spontaneous Silva Coma Scale Verbal: Oriented Silva Coma Scale Motor: Obeys Commands Rosmery Coma Scale Total: 15 Speech: Normal Motor strength normal: LUE, RUE, LLE, RLE Sensory: Normal - Psychological Associated symptoms: Normal affect, Normal mood - Skin Skin Temperature: Warm Skin Moisture: Dry Skin Color: Normal Course - Re-evaluation Re-evalutation: 07/13/16 10:48 The patient has palpitations as the patient's chest pain is not suggestive of pulmonary embolus, cardiac ischemia, aortic dissection, or other serious etiology. Given the extremely low risk of these diagnoses further testing and evaluation for these possibilities does not appear to be indicated at this time. The patient has been instructed to return if the symptoms worsen or change in any way. Patient recommend follow-up her PCP next day for further evaluation of her anxiety to stop her Lexapro. Patient agrees with this plan was discharged home. 07/13/16 10:49 - Vital Signs Vital signs: Temp Pulse Resp BP Pulse Ox 98.3 F 98 18 134/73 H 100 07/12/16 09:03 07/12/16 09:03 07/12/16 13:01 07/12/16 13:01 07/12/16 13:01 - Laboratory Result Diagrams: 07/12/16 10:40 07/12/16 10:40 Laboratory results interpreted by me: 07/12/16 07/12/16 10:40 10:40 Hgb 15.6 H RDW 14.4 H BUN 6 L Discharge - Discharge Clinical Impression: Palpitations, Medication side effects Condition: Good Disposition: HOME, SELF-CARE Instructions: Palpitations (Irregular or Rapid Heartrate) ([facility]), Medication Side Effects ([facility]) Additional Instructions: Please stop Lexapro Follow-up with your doctor tomorrow Referrals: JACKELYN LOW MD [Primary Care Provider] - Follow up in 3-5 days
[2016-07-12 13:14] VITALS: BP 134/73
--- NOTE | 2016-07-12 19:55 | EKG REPORT ---
SEVERITY:- DEFECTIVE ECG - SINUS RHYTHM PROBABLE LEFT ATRIAL ABNORMALITY TALL R WAVE IN V2, CONSIDER RVH OR PMI -TECHNICAL ERROR : Confirmed by: Farrukh Villegas MD 12-Jul-2016 19:55:11
--- NOTE | 2016-07-13 16:02 | EKG REPORT ---
SEVERITY:- NORMAL ECG - SINUS RHYTHM : Confirmed by: Maren Avelar 13-Jul-2016 16:01:52
== END 2016-07-12 13:15 | disposition home or self-care (01) ==
LOC: ER 08:56
DX: R00.2 Palpitations (principal); H53.8 Other visual disturbances; T43.225A Adverse effect of selective serotonin reuptake inhibitors, initial encounter; F41.9 Anxiety disorder, unspecified; F17.200 Nicotine dependence, unspecified, uncomplicated; Z88.8 Allergy status to other drugs, medicaments and biological substances
CPT/HCPCS: 36415; 71010; 80053; 82550; 82553; 83690; 83735; 84484; 85025; 85379; 85610; 93005; 93010; 99283

== ENCOUNTER 2016-07-13 03:59 | Emergency (ER) | payer OTHER ==
[2016-07-13 04:58] LABS: ABSOLUTE BASOPHILS # (AUTO) 0.1 10^3/uL (0.0-0.2); ABSOLUTE EOSINOPHILS # (AUTO) 0.1 10^3/uL (0.0-0.6); ABSOLUTE LYMPHOCYTES (AUTO) 1.3 10^3/uL (0.5-4.7); ABSOLUTE MONOCYTES (AUTO) 0.7 10^3/uL (0.1-1.4); ABSOLUTE NEUT (AUTO) 7.1 10^3/uL (1.7-8.2); BASOPHILS % (AUTO) 0.7 % (0-2); EOSINOPHILS % (AUTO) 0.6 % (0-6); HEMATOCRIT 44.1 % (36.0-47.0); HEMOGLOBIN 15.6 g/dL (12.0-15.5); HGB HCT DIFFERENCE 2.7; LYMPHOCYTES % (AUTO) 14.2 % (13-45); MEAN CORPUSCULAR HEMOGLOBIN 31.4 pg (27.0-33.4); MEAN CORPUSCULAR HGB CONC 35.3 g/dL (32.0-36.0); MEAN CORPUSCULAR VOLUME 89 fl (80-97); MONOCYTES % (AUTO) 7.7 % (3-13); RED BLOOD COUNT 4.96 10^6/uL (3.72-5.28); RED CELL DISTRIBUTION WIDTH 14.3 % (11.5-14.0); SEGMENTED NEUTROPHILS % (AUTO) 76.8 % (42-78); WHITE BLOOD COUNT 9.3 10^3/uL (4.0-10.5)
[2016-07-13 05:01] LABS: APPEARANCE,URINE CLEAR; BILIRUBIN,URINE NEGATIVE (NEGATIVE); GLUCOSE, URINE NEGATIVE (NEGATIVE); KETONES,URINE NEGATIVE (NEGATIVE); LEUKOCYTE ESTERASE,URINE TRACE (NEGATIVE); NITRITE,URINE NEGATIVE (NEGATIVE); PROTEIN,URINE NEGATIVE (NEGATIVE); URINE SPECIFIC GRAVITY 1.001; UROBILINOGEN,URINE NEGATIVE mg/dL (<2.0)
[2016-07-13 05:14] LABS: ALANINE AMINOTRANSFERASE 31 U/L (9-52); ALBUMIN 5.1 g/dL (3.5-5.0); ALCOHOL < 10 mg/dL (NONE DETECTED); ALKALINE PHOSPHATASE 83 U/L (38-126); ANION GAP 12 (5-19); ASPARTATE AMINO TRANSFERASE 18 U/L (14-36); BILIRUBIN,DIRECT 0.2 mg/dL (0.0-0.4); BILIRUBIN,TOTAL 0.7 mg/dL (0.2-1.3); BLOOD UREA NITROGEN 5 mg/dL (7-20); CALCIUM 10.4 mg/dL (8.4-10.2); CARBON DIOXIDE 27 mmol/L (22-30); CHLORIDE 100 mmol/L (98-107); CREATININE RESULT 0.58 mg/dL (0.52-1.25); GLUCOSE 112 mg/dL (75-110); POTASSIUM 3.8 mmol/L (3.6-5.0); SODIUM 139.4 mmol/L (137-145); TOTAL PROTEIN 7.6 g/dL (6.3-8.2)
[2016-07-13 05:15] LABS: URINE BARBITURATES SCREEN NEGATIVE; URINE METHADONE SCREEN NEGATIVE; URINE OPIATES LOW NEGATIVE; URINE PHENCYCLIDINE SCREEN NEGATIVE
[2016-07-13] MEDS ORDERED: DIPHENHYDRAMINE HCL 50 MG/ML VIAL IM ONE (09:46)
[2016-07-13] MEDS ORDERED: DIAZEPAM INJ 10 MG/2 ML DISP.SYRIN IM ONE (09:47)
--- NOTE | 2016-07-13 10:46 | ER Document Report ---
ED General - General Chief Complaint: Anxiety Stated Complaint: POSSIBLE ANXIETY Mode of Arrival: Ambulatory Information source: Patient Notes: 56 yr old female with hx of anxiety on lexapro presents with complaints of anxiety after taking her meds. pt seen yesterday, instructed to stop her meds. pt notes she is still feeling anxious, denies any chest pain sob. TRAVEL OUTSIDE OF THE [place] IN LAST 30 DAYS: No - HPI Onset: Other Onset/Duration: Persistent Quality of pain: No pain Severity: Mild Pain Level: Denies Associated symptoms: Other Exacerbated by: Denies Relieved by: Denies Similar symptoms previously: Yes Recently seen / treated by doctor: Yes - Related Data Allergies/Adverse Reactions: escitalopram Allergy (Verified 07/13/16 04:15) Past Medical History - Social History Smoking Status: Current Every Day Smoker Cigarette use (# per day): Yes Chew tobacco use (# tins/day): No Smoking Education Provided: No Family History: CAD - Reports brother needs cardiac stent, Other - She reports no family history of blood clots Patient has suicidal ideation: No Patient has homicidal ideation: No Renal/ Medical History: Denies: Hx Peritoneal Dialysis GI Medical History: Reports: Hx Gastroesophageal Reflux Disease Past Surgical History: Reports: Hx Breast Surgery - biopsy, Hx Tubal Ligation - Immunizations Hx Diphtheria, Pertussis, Tetanus Vaccination: Yes Review of Systems - Review of Systems Notes: REVIEW OF SYSTEMS: CONSTITUTIONAL : Denies fever, chills, or sweats. Denies recent illness. EENT: Denies eye, ear, throat, or mouth pain or symptoms. Denies nasal or sinus congestion or discharge. Denies throat, tongue, or mouth swelling or difficulty swallowing. CARDIOVASCULAR: Denies chest pain. Denies palpitations or racing or irregular heart beat. Denies ankle edema. RESPIRATORY: Denies cough, cold, or chest congestion. Denies shortness of breath, difficulty breathing, or wheezing. GASTROINTESTINAL: Denies abdominal pain or distention. Denies nausea, vomiting , or diarrhea. Denies blood in vomitus, stools, or per rectum. Denies black, tarry stools. Denies constipation. GENITOURINARY: Denies difficulty urinating, painful urination, burning, frequency, blood in urine, or discharge. FEMALE GENITOURINARY: Denies vaginal bleeding, heavy or abnormal periods, irregular periods. Denies vaginal discharge or odor. MUSCULOSKELETAL: Denies back or neck pain or stiffness. Denies joint pain or swelling. SKIN: Denies rash, lesions or sores. HEMATOLOGIC : Denies easy bruising or bleeding. LYMPHATIC: Denies swollen, enlarged glands. NEUROLOGICAL: Denies confusion or altered mental status. Denies passing out or loss of consciousness. Denies dizziness or lightheadedness. Denies headache. Denies weakness or paralysis or loss of use of either side. Denies problems with gait or speech. Denies sensory loss, numbness, or tingling. Denies seizures. PSYCHIATRIC: Admits to anxiety ALL OTHER SYSTEMS REVIEWED AND NEGATIVE. Dictation was performed using [employer] voice recognition software PHYSICAL EXAMINATION: GENERAL: Well-appearing, well-nourished and in no acute distress. HEAD: Atraumatic, normocephalic. EYES: Pupils equal round and reactive to light, extraocular movements intact, conjunctiva are normal. ENT: Nares patent, oropharynx clear without exudates. Moist mucous membranes. NECK: Normal range of motion, supple without lymphadenopathy LUNGS: Breath sounds clear to auscultation bilaterally and equal. No wheezes rales or rhonchi. HEART: Regular rate and rhythm without murmurs ABDOMEN: Soft, nontender, nondistended abdomen. No guarding, no rebound. No masses appreciated. Female : deferred Musculoskeletal: Normal range of motion, no pitting or edema. No cyanosis. NEUROLOGICAL: Cranial nerves grossly intact. Normal speech, normal gait. Normal sensory, motor exams PSYCH: Admits to anxiety. SKIN: Warm, Dry, normal turgor, no rashes or lesions noted. Physical Exam - Vital signs Vitals: Temp Pulse Resp BP Pulse Ox 98.2 F 92 18 131/80 H 99 07/13/16 04:11 07/13/16 04:11 07/13/16 04:11 07/13/16 04:11 07/13/16 04:11 Course - Re-evaluation Re-evalutation: 07/13/16 10:48 Patient at this time is in no distress, she looks well, she was given Valium IM and is much calmer. Patient was seen by mental health as she has follow-up outpatient for her mental health issues. Otherwise she is stable for discharge has no cardiac concerns and had a complete workup performed yesterday After performing a Medical Screening Examination, I estimate there is LOW risk for RUPTURED ESOPHAGUS, PNEUMOTHORAX, PULMONARY EMBOLISM, ACUTE CORONARY SYNDROME, OR THORACIC AORTIC DISSECTION, thus I consider the discharge disposition reasonable. The patient and I have discussed the diagnosis and risks , and we agree with discharging home with close follow-up. We also discussed returning to the Emergency Department immediately if new or worsening symptoms occur. We have discussed the symptoms which are most concerning (e.g., bloody sputum, worsening pain or shortness of breath) that necessitate immediate return. - Vital Signs Vital signs: Temp Pulse Resp BP Pulse Ox 98.2 F 92 18 131/80 H 99 07/13/16 04:11 07/13/16 04:11 07/13/16 04:11 07/13/16 04:11 07/13/16 04:11 - Laboratory Result Diagrams: 07/13/16 04:45 07/13/16 04:45 Laboratory results interpreted by me: 07/13/16 07/13/16 07/13/16 04:45 04:45 04:45 Hgb 15.6 H RDW 14.3 H BUN 5 L Glucose 112 H Calcium 10.4 H Albumin 5.1 H Ur Leukocyte Esterase TRACE H Salicylates < 1.0 L Acetaminophen < 10 L - Diagnostic Test Radiology reviewed: Image reviewed, Reports reviewed - EKG Interpretation by Me EKG shows normal: Sinus rhythm, [place], Intervals, QRS Complexes Discharge - Discharge Clinical Impression: Anxiety, Medication side effects Condition: Stable Disposition: HOME, SELF-CARE Instructions: Anxiety ([facility]) Additional Instructions: Please follow-up with the care plan provided to you by mental health team will return immediately if there are any other concerns
--- NOTE | 2016-07-13 11:06 | PSYCHOLOGICAL NOTE ---
Psych Note - Psych Note Psych Note: Patient is a 56 year old female who presents today stating she woke up in the middle of the night feeling anxious. Patient states she was seen here yesterday for similar type symptoms and was told to stop taking her Lexapro and follow up with her Dr. Patient states she was prescribed Lexapro and Xanax. She states he stopped taking the Lexapro and denies taking a Xanax, which she states does not help with her anxiety regardless. Patient states she does have lots of stressors in her life at this time, which she thinks may be contributing to her stress. Patient reprots her father some months ago and she was unable to travel to [place] as well as other familial stressors. She states in general as a mother and she feels unappreciated and that no one cares for her when she is sick. Patient adamant that she has no prior psychiatric history and states her current provider, [facility] has referred her to Dr. Mathur. Discussed with patient that while medication is important, equally important is therapy to process her stressors and develop coping skills. Patient states she is open to counseling. Patient states she is in agreement that it may have been anxiety that woke her up overnight and states she will call her provider, as previously directed. Patient is A&O. Mood is anxious, per report, with normal affect. Patient denies suicidal/homicidal ideations, intent, plan, or means. Patient denies A/V H; delusions not noted. Thought processes were organized, but guarded. Conversational speech was WNL for prosody. Intellectual abilities were estimated within average range. Attention and focus were fair. Insight, judgment , and impulse control were poor. Unspecified Anxiety Disorder Patient's presenting symptoms were similar to that of an anxiety disorder and cause clinically significant distress in her life At this time and in this setting there is not enough information to make a more specific diagnosis, eg Grief vs anxiety vs depression Patient is psychiatrically cleared and recommended for discharge. Patient was again recommended to contact her provider to be seen, as well as pursue outpatient counseling to discuss her stressors and develop coping skills to manage these stressors. Patient denies suicidal ideations. Patient requests a stronger medication than Xanax stating it is ineffective at managing her anxiety. Patient prompted to discuss this with her provider.
[2016-07-13 11:25] VITALS: BP 120/76
== END 2016-07-13 11:15 | disposition home or self-care (01) ==
LOC: ER 03:59
DX: F41.9 Anxiety disorder, unspecified (principal); T43.225A Adverse effect of selective serotonin reuptake inhibitors, initial encounter; F17.210 Nicotine dependence, cigarettes, uncomplicated; K21.9 Gastro-esophageal reflux disease without esophagitis; Z98.51 Tubal ligation status
CPT/HCPCS: 99283; 36415; 80307 ×4; 85025; 80053; 81001; J3360; J1200

== ENCOUNTER → 2017-03-22 | Outpatient (CLI) | payer OTHER ==
--- NOTE | 2017-03-22 10:30 | WOMENS IMAGING REPORT ---
EXAM DESCRIPTION: BILAT SCREENING MAMMO W/CAD COMPLETED DATE/TIME: 03/22/2017 8:56 am REASON FOR STUDY: ROUTINE SCREENING; Z12.31 Z12.31 ENCNTR SCREEN MAMMOGRAM FOR MALIGNANT NEOPLASM O F SAÚL COMPARISON: [id number] TECHNIQUE: Standard craniocaudal and mediolateral oblique views of each breast recorded using hoopos.coma l acquisition. LIMITATIONS: None. FINDINGS: No masses, calcifications or architectural distortion. No areas of suspicion. Read with the assistance of CAD. .[facility] - R2 Cenova Version 1.3 .[facility] - R2 Cenova Version 1.3 .[facility] - R2 Cenova Version 2.4 .[facility] - R2 Cenova Version 2.4 .[facility] - R2 Earth Science Faculty Member Version 9.2 IMPRESSION: NORMAL MAMMOGRAM. BIRADS 1. BREAST DENSITY: c. The breasts are heterogeneously dense, which may obscure small masses. BIRAD: 1 NEGATIVE RECOMMENDATION: ROUTINE SCREENING COMMENT: The patient has been notified of the results by letter per SA requirements. Additional no tification policies are in place for contacting patient with suspicious or incomplete findings. Quality ID #[id number]: The [employer] recommends an annual screening mammogram for women aged 40 years or over. This facility utilizes a reminder system to ensure that all patients receive reminder letters, and/or direct phone calls for appointments. This includes reminders for routine scr eening mammograms, diagnostic mammograms, or other Breast Imaging Interventions when appropriate. Th is patient will be placed in the appropriate reminder system. The [employer] (ACR) has developed recommendations for screening MRI of the breast s in certain patient populations, to be used in conjunction with mammography. Breast MRI surveillanc e may be appropriate for women with more than 20% lifetime risk of developing breast cancer as deter mined by genetic testing, significant family history of the disease, or history of mantle radiation f or Hodgkins Disease. ACR Practice Guidelines 2008. TECHNICAL DOCUMENTATION: FINDING NUMBER: (1) ASSESSMENT: (1) JOB ID: [id number] [employer]- All Rights Reserved
== END ==
LOC: WI 08:32
PROVIDERS: ATTEND Family Medicine
DX: Z12.31 Encounter for screening mammogram for malignant neoplasm of breast (principal)
CPT/HCPCS: 77067; G0202

== ENCOUNTER → 2017-05-09 | Outpatient (CLI) | payer OTHER ==
--- NOTE | 2017-05-10 19:01 | RADIOLOGY REPORT (SQ) ---
EXAM DESCRIPTION: PET CT WHOLE BODY COMPLETED DATE/TIME: 05/09/2017 9:23 pm REASON FOR STUDY: OTHER UNSPECIFIC ABNORMAL FINDING OF LUNG FIELD/ DISEASE OF PANCREAS R91.8 OTHER NONSPECIFIC ABNORMAL FINDING OF LUNG FIELD K86.9 DISEASE OF PANCREAS, UNSPECIFIED COMPARISON: CT chest 07/24/2016, [facility] CT chest 03/29/2017, [facility] RADIONUCLIDE AND DOSE: 13 mCi F18 FDG The route of agent administration: Intravenous FASTING BLOOD SUGAR: 96 mg/dl CONTRAST TYPE AND DOSE: No CT contrast given. TECHNIQUE: Blood glucose level was verified. Above dose of FDG was injected intravenously. 2-D seg mented attenuation correction images were obtained through the entire body. Noncontrast CT images we re obtained for attenuation correction and fusion with emission images. CT images were performed wit hout oral or intravenous contrast and are not sensitive for parenchymal lesions. A series of overlap ping emission PET images were obtained. Images reviewed and manipulated at independent work station by the radiologist. Images stored on PACS. LIMITATIONS: None. FINDINGS: HEAD AND NECK: No areas of abnormal metabolic activity in the soft tissues of the head and neck. CHEST: No areas of abnormal metabolic activity in the chest. ABDOMEN AND PELVIS: No areas of abnormal metabolic activity in the abdomen or pelvis. Expected physi ologic activity is present in the genitourinary system and bowel. LOWER EXTREMITIES: No areas of abnormal metabolic activity in the soft tissues of the lower extremiti es. BONES: No abnormal metabolic activity in the visualized skeleton. ADDITIONAL CT FINDINGS: There is diffuse centrilobular emphysema throughout both lungs, stable bandli ke scarring in the medial posterior right and left lung bases. Degenerative disc changes in the thor acic spine. Small hiatal hernia. Atherosclerotic aortoiliac calcification without aneurysm. The 1.5 x 1.3 cm nodule at the tail of pancreas/splenic hilum is unchanged from prior studies, and no t metabolically active. OTHER: Liver background SUV 2.0. Blood pool background activity 1.6 SUV IMPRESSION: No findings worrisome for malignancy TECHNICAL DOCUMENTATION: JOB ID: [id number]- All Rights Reserved
== END ==
LOC: RAD 16:07
PROVIDERS: ATTEND Internal Medicine Pulmonary Disease
DX: J43.2 Centrilobular emphysema (principal); R91.8 Other nonspecific abnormal finding of lung field; K86.9 Disease of pancreas, unspecified
CPT/HCPCS: 78816; A9552

== ENCOUNTER → 2017-05-11 | Outpatient (CLI) | payer OTHER ==
[2017-05-12 12:38] LABS: ANTICHROMATIN AB 0.2 AI (0.0-0.9); CENTROMERE B AB <0.2 AI (0.0-0.9); JO-1 ANTIBODY (ANACOMP) <0.2 AI (0.0-0.9); RNP AB <0.2 AI (0.0-0.9); SCLERODERMA-70 ANTIBODIES 0.4 AI (0.0-0.9); SJOGREN'S ANTI-SS-B AB <0.2 AI (0.0-0.9); SJOGREN'S SS-A ANTIBODY <0.2 AI (0.0-0.9); SMITH AB ANA <0.2 AI (0.0-0.9)
[2017-05-12 12:43] LABS: DNA DOUBLE STRAND ANTIBODY ANA 160 IU/mL (0-9)
[2017-05-12 17:37] LABS: CYTOPLASMIC (C-ANCA) <1:20 titer (Neg:<1:20)
[2017-05-13 07:02] LABS: ATYPICAL PANCA <1:20 titer (Neg:<1:20); PERINUCLEAR (P-ANCA) <1:20 titer (Neg:<1:20)
== END ==
LOC: OD 12:59
PROVIDERS: ATTEND Otolaryngology
DX: J30.9 Allergic rhinitis, unspecified (principal); R91.8 Other nonspecific abnormal finding of lung field
CPT/HCPCS: 36415; 86021; 86225; 86235; 86430

== ENCOUNTER → 2018-04-15 | Outpatient (CLI) | payer OTHER ==
--- NOTE | 2018-04-15 14:13 | WOMENS IMAGING REPORT ---
EXAM DESCRIPTION: BILAT SCREENING MAMMO W/CAD COMPLETED DATE/TIME: 04/15/2018 1:47 pm REASON FOR STUDY: ROUTINE SCREENING MAMMOGRAM Z12.31 Z12.31 ENCNTR SCREEN MAMMOGRAM FOR MALIGNANT N EOPLASM OF SAÚL COMPARISON: [id number] TECHNIQUE: Standard craniocaudal and mediolateral oblique views of each breast recorded using SIMIa l acquisition. LIMITATIONS: None. FINDINGS: No masses, calcifications or architectural distortion. No areas of suspicion. Read with the assistance of CAD. .[facility] - R2 Cenova Version 1.3 .[facility] Imaging - R2 Cenova Version 1.3 .[facility] Imaging - R2 Cenova Version 2.4 .[facility] - R2 Cenova Version 2.4 .[facility] - R2 Animal Laboratory Helper Version 9.2 IMPRESSION: NORMAL MAMMOGRAM. BIRADS 1. BREAST DENSITY: b. There are scattered areas of fibroglandular density. BIRAD: 1 NEGATIVE RECOMMENDATION: ROUTINE SCREENING COMMENT: The patient has been notified of the results by letter per MQSA requirements. Additional no tification policies are in place for contacting patient with suspicious or incomplete findings. Quality ID #225: The [employer] recommends an annual screening mammogram for women aged 40 years or over. This facility utilizes a reminder system to ensure that all patients receive reminder letters, and/or direct phone calls for appointments. This includes reminders for routine scr eening mammograms, diagnostic mammograms, or other Breast Imaging Interventions when appropriate. Th is patient will be placed in the appropriate reminder system. The [employer] (ACR) has developed recommendations for screening MRI of the breast s in certain patient populations, to be used in conjunction with mammography. Breast MRI surveillanc e may be appropriate for women with more than 20% lifetime risk of developing breast cancer as deter mined by genetic testing, significant family history of the disease, or history of mantle radiation f or Hodgkins Disease. ACR Practice Guidelines 2008. TECHNICAL DOCUMENTATION: FINDING NUMBER: (1) ASSESSMENT: (1) JOB ID: [id number] [employer]- All Rights Reserved Reading location - IP/workstation name: ON LICENSE OF [facility]
== END ==
LOC: WI 13:33
PROVIDERS: ATTEND Family Medicine
DX: Z12.31 Encounter for screening mammogram for malignant neoplasm of breast (principal)
CPT/HCPCS: 77067

== ENCOUNTER → 2020-04-18 | Outpatient (CLI) | payer OTHER ==
--- NOTE | 2020-04-18 11:00 | WOMENS IMAGING REPORT ---
EXAM DESCRIPTION: BILAT SCREENING MAMMO W/CAD IMAGES COMPLETED DATE/TIME: 04/18/2020 9:16 am REASON FOR STUDY: ROUTINE SCREENING MAMMOGRAM Z12.31 Z12.31 ENCNTR SCREEN MAMMOGRAM FOR MALIGNANT N EOPLASM OF SAÚL COMPARISON: Priors dating back to 2013 EXAM PARAMETERS: Standard craniocaudal and mediolateral oblique views of each breast recorded using digital acquisition. Read with the assistance of CAD. .[employer] Licensed Marine Engineer Version 9.2 LIMITATIONS: None. FINDINGS: No suspicious masses, suspicious calcifications or architectural distortion. No areas of c oncern. IMPRESSION: NEGATIVE MAMMOGRAM. BIRADS 1 BREAST DENSITY: b. There are scattered areas of fibroglandular density. BIRAD: ASSESSMENT: 1 NEGATIVE RECOMMENDATION: ROUTINE SCREENING COMMENT: The patient has been notified of the results by letter per MQSA requirements. Additional no tification policies are in place for contacting patient with suspicious or incomplete findings. Quality ID #[id number]: The [employer] recommends an annual screening mammogram for women aged 40 years or over. This facility utilizes a reminder system to ensure that all patients receive reminder letters, and/or direct phone calls for appointments. This includes reminders for routine scr eening mammograms, diagnostic mammograms, or other Breast Imaging Interventions when appropriate. Th is patient will be placed in the appropriate reminder system. TECHNICAL DOCUMENTATION: FINDING NUMBER: (1) ASSESSMENT: (1) JOB ID: [id number] [employer]- All Rights Reserved Reading location - IP/workstation name: [email or web address]
== END ==
LOC: WI 08:54
PROVIDERS: ATTEND Physician Assistant
DX: Z12.31 Encounter for screening mammogram for malignant neoplasm of breast (principal)
CPT/HCPCS: 77067